=== PATIENT | female | born 1950 ===

== ENCOUNTER 2018-11-11 10:18 | Outpatient (CLI) | payer OTHER ==
[~2018-11-11 10:18] MED LIST: DICLOFENAC POTA50 MG PO; NABUMETONE500 MG PO; NORFLEX100MG PO
== END 2018-11-11 10:26 | disposition home or self-care (01) ==
LOC: MRI 10:18
DX: S76.311A Strain of muscle, fascia and tendon of the posterior muscle group at thigh level, right thigh, initial encounter (principal)
CPT/HCPCS: 73721